=== PATIENT | male | born 1975 | race Caucasian/White ===

== ENCOUNTER 2024-05-02 21:06 | Emergency (ER) | payer OTHER ==
[2024-05-02] MEDS ORDERED: Ibuprofen 800 MG TAB ONE (21:58)
[2024-05-02] MEDS ORDERED: HYDROcodone/Acetaminophen 10/325 mg Tablet ONE (21:59)
== END 2024-05-02 22:08 | disposition home or self-care (01) ==
LOC: MADERS 21:06
DX: S92.411A Displaced fracture of proximal phalanx of right great toe, initial encounter for closed fracture (principal); W20.8XXA Other cause of strike by thrown, projected or falling object, initial encounter
CPT/HCPCS: 99283

== ENCOUNTER 2025-05-04 18:54 | Emergency (ER) | payer OTHER | END 2025-05-04 21:32 | disposition home or self-care (01) | LOC: MADERS 18:54 | DX: S90.112A Contusion of left great toe without damage to nail, initial encounter (principal); W22.8XXA Striking against or struck by other objects, initial encounter | CPT/HCPCS: 99283 ==